=== PATIENT | female | born 1980 | race Caucasian/White ===

== ENCOUNTER 2017-01-24 08:18 | Emergency (ER) | payer OTHER ==
[~2017-01-24] VITALS: Ht 165.1 cm; Wt 129.3 kg
[~2017-01-24 08:18] MED LIST: CLINDAMYCIN300 M1 PO; COL250 PO; DEPO-PROVER150 MG/ML IM; FERATAB300 MG PO; LAC PO; LEVAQUIN500 MG PO; LEVOTHYROXIN0.125 M2 PO; LEVOTHYROXINE0.1 M2 PO; NORCO1 TA2 PO; VENTOLIN H0.09 MG/A1 INH; VITAMIN C250 M1 PO; ZOFRAN ODT4 MG SL
[2017-01-24 09:58] VITALS: BP 128/70
== END 2017-01-24 09:58 | disposition home or self-care (01) ==
LOC: ED 08:18
DX: J02.8 Acute pharyngitis due to other specified organisms (principal); B97.89 Other viral agents as the cause of diseases classified elsewhere; E07.9 Disorder of thyroid, unspecified; Z88.1 Allergy status to other antibiotic agents

== ENCOUNTER 2017-06-06 17:01 | Emergency (ER) | payer OTHER ==
[~2017-06-06] VITALS: Ht 165.1 cm; Wt 131.5 kg
[2017-06-06 19:00] VITALS: BP 138/91
== END 2017-06-06 19:00 | disposition home or self-care (01) ==
LOC: ED 17:01
DX: S92.252A Displaced fracture of navicular [scaphoid] of left foot, initial encounter for closed fracture (principal); W18.39XA Other fall on same level, initial encounter; Y93.89 Activity, other specified; Y92.89 Other specified places as the place of occurrence of the external cause; Y99.8 Other external cause status

== ENCOUNTER 2017-08-08 22:30 | Emergency (ER) | payer OTHER ==
[~2017-08-08] VITALS: Ht 165.1 cm; Wt 131.5 kg
[2017-08-08 22:34] VITALS: Ht 165.1 cm; Wt 131.5 kg
[2017-08-09 00:37] VITALS: BP 120/75
== END 2017-08-09 00:56 | disposition home or self-care (01) ==
LOC: ED 22:30
DX: J98.01 Acute bronchospasm (principal); R07.89 Other chest pain; I44.7 Left bundle-branch block, unspecified; E03.8 Other specified hypothyroidism; E66.01 Morbid (severe) obesity due to excess calories
CPT/HCPCS: J2930; J7613; J7644

== ENCOUNTER 2018-10-07 09:18 | Emergency (ER) | payer OTHER ==
[~2018-10-07] VITALS: Ht 162.6 cm; Wt 128.5 kg
[2018-10-07 09:28] VITALS: Ht 162.6 cm; Wt 128.5 kg
[2018-10-07 10:40] VITALS: BP 140/98
== END 2018-10-07 10:50 | disposition home or self-care (01) ==
LOC: ED 09:18
DX: M54.9 Dorsalgia, unspecified (principal); Z90.49 Acquired absence of other specified parts of digestive tract; F41.9 Anxiety disorder, unspecified

== ENCOUNTER 2019-07-02 15:36 | Emergency (ER) | payer OTHER ==
[~2019-07-02] VITALS: Ht 165.1 cm; Wt 129.3 kg
[2019-07-02 15:41] VITALS: Ht 165.1 cm; Wt 129.3 kg
[2019-07-02 19:00] VITALS: BP 117/80
== END 2019-07-02 19:00 | disposition home or self-care (01) ==
LOC: ED 15:36
DX: J98.01 Acute bronchospasm (principal); R05 Cough; Z90.49 Acquired absence of other specified parts of digestive tract
CPT/HCPCS: J7512; J7613

== ENCOUNTER 2019-09-23 09:25 | Emergency (ER) | payer OTHER ==
[~2019-09-23] VITALS: Ht 162.6 cm; Wt 127.5 kg
[2019-09-23 09:41] VITALS: Ht 162.6 cm; Wt 127.5 kg
[2019-09-23 10:45] VITALS: BP 131/68
== END 2019-09-23 10:48 | disposition home or self-care (01) ==
LOC: ED 09:25
DX: B34.9 Viral infection, unspecified (principal); E66.01 Morbid (severe) obesity due to excess calories; Z90.49 Acquired absence of other specified parts of digestive tract